=== PATIENT | female | born 1940 | race Caucasian/White ===

== ENCOUNTER 2022-08-01 14:11 | Inpatient (IN) ==
[2022-08-01] MEDS ORDERED: ONDANSETRON 4 MG/2 ML VIAL IV STA (15:38)
[2022-08-01] MEDS ORDERED: MORPHINE 2 MG/1 ML SYRINGE IV STA ×2 (15:38→17:28)
[2022-08-01 16:20] LABS: Basophils % 0.2 % (0.0-0.8); Hematocrit 42.5 VOL% (35.7-47.0); Hemoglobin 14.2 GM/DL (12.0-16.0); Immature Granulocytes % 0.6 %; Immature Granulocytes Absolute 0.07 #; Lymphocytes # 0.9 10*3/uL (1.4-4.0); Lymphocytes % 7.3 % (21.3-54.2); Mean Corpuscular HGB Conc 33.4 GM/DL (32-36); Mean Corpuscular Volume 94.7 FL (87-102); Mean Platelet Volume 10.1 FL (9.6-12.0); Monocytes # 0.6 10*3/uL (0.11-0.8); Monocytes % 5.2 % (1.7-12.7); Neutrophils % 86.7 % (38.7-73.9); Platelet Count 170 T/CUMM (130-400); Red Blood Count 4.49 MC/CUMM (3.8-5.5); Red Cell Distribution Width 14.3 % (9.3-17.3); White Blood Count 12.4 T/CUMM (4-12)
[2022-08-01 16:49] LABS: Albumin 3.5 G/DL (3.4-5.0); Bilirubin,Total 1.4 MG/DL (0.20-1.00); Calcium 8.8 MG/DL (8.5-10.1); Osmolality,Calculated 278.5 MOS/KG (273-304); Potassium 3.5 MMOL/L (3.5-5.1); Total Protein 7.8 G/DL (6.4-8.2)
[2022-08-01 16:50] LABS: Bacteria,Urine Occasional /HPF (Few); Mucus,Urine Occasional /LPF (Occasional); RBC,Urine 5 /HPF (0-4)
[2022-08-01 16:51] LABS: Glucose,Urine (UA) Negative (Negative); Protein,Urine Negative (Negative); Urine Appearance Clear (Clear); Urine Color Yellow (Yellow); Urine Specific Gravity 1.025 (1.001-1.035)
[2022-08-01 16:52] LABS: Bilirubin,Urine Negative (Negative); Blood, Urine Small mg/dL (Negative); Ketones,Urine 40 mg/dL (Negative); Nitrite,Urine Negative (Negative); Urine Urobilinogen 0.2 eU/dL (<2.0)
[2022-08-01] MEDS ORDERED: ACETAMINOPHEN 325 MG TABLET PO PRN (17:32)
[2022-08-01] MEDS ORDERED: ONDANSETRON 4 MG/2 ML VIAL IV PRN (17:32)
[2022-08-01 19:59] LABS: Thyroid Stimulating Hormone 1.66 uIU/ml (0.358-3.74)
[2022-08-01] MEDS: LACTATED RINGERS 1,000 ML IV SCH (20:49)
[2022-08-01] MEDS: DOCUSATE SODIUM 100 MG CAPSULE PO SCH (21:34)
[2022-08-02] MEDS: MORPHINE 2 MG/1 ML SYRINGE IV PRN ×2 (00:18→06:34)
[2022-08-02 05:57] LABS: Basophils % 0.3 % (0.0-0.8); Eosinophils % 0.3 % (0.00-10.9); Hematocrit 41.5 VOL% (35.7-47.0); Hemoglobin 13.5 GM/DL (12.0-16.0); Immature Granulocytes % 0.7 %; Immature Granulocytes Absolute 0.08 #; Lymphocytes # 0.9 10*3/uL (1.4-4.0); Lymphocytes % 7.3 % (21.3-54.2); Mean Corpuscular HGB Conc 32.5 GM/DL (32-36); Mean Platelet Volume 10.5 FL (9.6-12.0); Monocytes % 8.1 % (1.7-12.7); Neutrophils % 83.3 % (38.7-73.9); Platelet Count 171 T/CUMM (130-400); Red Blood Count 4.28 MC/CUMM (3.8-5.5); Red Cell Distribution Width 14.5 % (9.3-17.3)
[2022-08-02] MEDS: LEVOTHYROXINE 25 MCG TABLET PO SCH (06:04)
[2022-08-02 06:24] LABS: Calcium 8.5 MG/DL (8.5-10.1); Osmolality,Calculated 273.8 MOS/KG (273-304); Potassium 3.3 MMOL/L (3.5-5.1)
[2022-08-02] MEDS ORDERED: propofoL 200 MG/20 ML VIAL IV ONE (10:24)
[2022-08-02] MEDS ORDERED: buprenorphine HCL 0.3 MG/ML VIAL ONE (10:27)
[2022-08-02] MEDS ORDERED: DEXAMETHASONE 4 MG/1 ML VIAL ONE (10:30)
[2022-08-02] MEDS ORDERED: ROPIVACAINE 0.5% 30 ML VIAL ONE (10:31)
[2022-08-02] MEDS ORDERED: KETAMINE 500 MG/10 ML VIAL ONE (10:36)
[2022-08-02] MEDS: LACTATED RINGERS 1,000 ML IV SCH ×3 (10:56→20:06)
[2022-08-02] MEDS ORDERED: LACTULOSE 20 GM/30 ML UDCUP PO PRN (10:57)
[2022-08-02] MEDS ORDERED: BISACODYL 10 MG SUPP RECTAL PRN (10:57)
[2022-08-02] MEDS ORDERED: MAGNESIUM HYDROXIDE SUSP 30 ML UDCUP PO PRN (10:57)
[2022-08-02] MEDS ORDERED: diphenhydrAMINE CAP 25 MG CAPSULE PO PRN (10:57)
[2022-08-02] MEDS ORDERED: ceFAZolin 1,000 MG VIAL ONE (10:59)
[2022-08-02] MEDS ORDERED: ceFAZolin 2,000 MG/50 ML DUPLEX IV ONE (11:00)
[2022-08-02] MEDS ORDERED: MORPHINE 2 MG/1 ML SYRINGE IV PRN ×2 (11:01→11:16)
[2022-08-02] MEDS ORDERED: ePHEDrine 50 MG/ML VIAL ONE (11:21)
[2022-08-02] MEDS ORDERED: LIDOCAINE 2% 5 ML VIAL ONE (11:53)
[2022-08-02] MEDS ORDERED: LACTATED RINGERS 1,000 ML IV ONE (11:53)
[2022-08-02] MEDS ORDERED: PHENYLEPHRINE 10 MG/1 ML VIAL IV ONE (11:59)
[2022-08-02] MEDS: PANTOPRAZOLE 40 MG TABLET PO SCH (14:19)
[2022-08-02] MEDS: MULTIVITAMIN (CENTRUM) TABLET PO SCH (14:19)
[2022-08-02] MEDS: DOCUSATE SODIUM 100 MG CAPSULE PO SCH ×2 (14:19→20:45)
[2022-08-02] MEDS ORDERED: POTASSIUM CHLORIDE 20 MEQ TABLET PO ONE (15:10)
[2022-08-02] MEDS: NITROFURANTOIN MACRO/MONO 100 MG CAPSULE PO SCH (20:45)
[2022-08-03] MEDS: LACTATED RINGERS 1,000 ML IV SCH (01:37)
[2022-08-03] MEDS: FONDAPARINUX 2.5 MG/0.5 ML SYRINGE SUBCUT SCH (05:44)
[2022-08-03] MEDS: LEVOTHYROXINE 25 MCG TABLET PO SCH (05:45)
[2022-08-03 05:52] LABS: Basophils % 0.1 % (0.0-0.8); Eosinophils % 0.1 % (0.00-10.9); Hematocrit 37.5 VOL% (35.7-47.0); Hemoglobin 12.5 GM/DL (12.0-16.0); Immature Granulocytes % 0.9 %; Immature Granulocytes Absolute 0.12 #; Lymphocytes % 7.6 % (21.3-54.2); Mean Corpuscular HGB Conc 33.3 GM/DL (32-36); Mean Corpuscular Volume 96.2 FL (87-102); Mean Platelet Volume 10.5 FL (9.6-12.0); Monocytes # 1.1 10*3/uL (0.11-0.8); Monocytes % 8.9 % (1.7-12.7); Neutrophils % 82.4 % (38.7-73.9); Platelet Count 155 T/CUMM (130-400); Red Cell Distribution Width 14.2 % (9.3-17.3); White Blood Count 12.8 T/CUMM (4-12)
[2022-08-03 06:08] LABS: Calcium 8.8 MG/DL (8.5-10.1); Osmolality,Calculated 279.4 MOS/KG (273-304); Potassium 4.4 MMOL/L (3.5-5.1)
[2022-08-03] MEDS: MULTIVITAMIN (CENTRUM) TABLET PO SCH (08:14)
[2022-08-03] MEDS: DOCUSATE SODIUM 100 MG CAPSULE PO SCH ×2 (08:15→20:05)
[2022-08-03] MEDS: NITROFURANTOIN MACRO/MONO 100 MG CAPSULE PO SCH ×2 (08:15→20:05)
[2022-08-03] MEDS: PANTOPRAZOLE 40 MG TABLET PO SCH (08:16)
[2022-08-03] MEDS: TEMAZEPAM 7.5 MG CAPSULE PO PRN ×2 (20:06→21:10)
[2022-08-04] MEDS: FONDAPARINUX 2.5 MG/0.5 ML SYRINGE SUBCUT SCH (06:13)
[2022-08-04] MEDS: LEVOTHYROXINE 25 MCG TABLET PO SCH (06:24)
[2022-08-04] MEDS: NITROFURANTOIN MACRO/MONO 100 MG CAPSULE PO SCH ×2 (09:41→20:31)
[2022-08-04] MEDS: MULTIVITAMIN (CENTRUM) TABLET PO SCH (09:41)
[2022-08-04] MEDS: PANTOPRAZOLE 40 MG TABLET PO SCH (09:41)
[2022-08-04] MEDS: DOCUSATE SODIUM 100 MG CAPSULE PO SCH ×2 (09:42→20:31)
[2022-08-04] MEDS: TEMAZEPAM 7.5 MG CAPSULE PO PRN (22:40)
[2022-08-05 05:01] LABS: Basophils % 0.4 % (0.0-0.8); Eosinophils # 0.4 10*3/uL (0.0-0.87); Eosinophils % 3.6 % (0.00-10.9); Hematocrit 36.7 VOL% (35.7-47.0); Hemoglobin 12.4 GM/DL (12.0-16.0); Immature Granulocytes % 1.9 %; Immature Granulocytes Absolute 0.19 #; Lymphocytes # 1.3 10*3/uL (1.4-4.0); Lymphocytes % 13.7 % (21.3-54.2); Mean Corpuscular HGB Conc 33.8 GM/DL (32-36); Mean Corpuscular Volume 95.8 FL (87-102); Mean Platelet Volume 10.8 FL (9.6-12.0); Monocytes % 10.4 % (1.7-12.7); Platelet Count 157 T/CUMM (130-400); Red Blood Count 3.83 MC/CUMM (3.8-5.5); White Blood Count 9.8 T/CUMM (4-12)
[2022-08-05] MEDS: FONDAPARINUX 2.5 MG/0.5 ML SYRINGE SUBCUT SCH (05:17)
[2022-08-05 05:27] LABS: Osmolality,Calculated 274.7 MOS/KG (273-304); Potassium 3.5 MMOL/L (3.5-5.1)
[2022-08-05] MEDS: LEVOTHYROXINE 25 MCG TABLET PO SCH (06:10)
[2022-08-05 07:31] VITALS: BP 119/57
[2022-08-05] MEDS ORDERED: MAGNESIUM HYDROXIDE SUSP 30 ML UDCUP PO ONE (08:00)
[2022-08-05] MEDS: MULTIVITAMIN (CENTRUM) TABLET PO SCH (09:09)
[2022-08-05] MEDS: DOCUSATE SODIUM 100 MG CAPSULE PO SCH (09:09)
[2022-08-05] MEDS: NITROFURANTOIN MACRO/MONO 100 MG CAPSULE PO SCH (09:09)
[2022-08-05] MEDS: PANTOPRAZOLE 40 MG TABLET PO SCH (09:09)
== END 2022-08-05 10:36 | disposition swing bed (61) | DRG 522 ==
LOC: EDUNIT# → EDBD → N.ED 14:11 → N.EDINP 17:32 → N.3E 19:32
PROVIDERS: ADMIT Internal Medicine; ATTEND Internal Medicine